=== PATIENT | male | born 1940 | race Caucasian/White ===

== ENCOUNTER 2023-03-08 09:58 | Emergency (ER) | payer OTHER ==
[~2023-03-08] VITALS: Ht 182.9 cm; Wt 83.9 kg
[2023-03-08 10:09] VITALS: BP 115/67
[2023-03-08] MEDS ORDERED: Monodox100 MG PO (11:29)
== END 2023-03-08 11:34 | disposition home or self-care (01) ==
LOC: ER 09:58
DX: E11.621 Type 2 diabetes mellitus with foot ulcer (principal); L97.522 Non-pressure chronic ulcer of other part of left foot with fat layer exposed; L03.116 Cellulitis of left lower limb
CPT/HCPCS: 73620; 99283-25; A9270